=== PATIENT | female | born 1975 | race Caucasian/White ===

== ENCOUNTER 2018-12-15 18:03 | Emergency (ER) | payer OTHER ==
[~2018-12-15 18:03] MED LIST: LANTUS INSULIN
--- NOTE | 2018-12-15 18:12 | NUR ---
PT REFUSED TO TRIAGE AT THIS TIME, STATED WILL GO TO SEE HER PCP INSTEAD.
== END 2018-12-15 18:12 | disposition left against medical advice (07) ==
LOC: MED 18:03
DX: Z53.21 Procedure and treatment not carried out due to patient leaving prior to being seen by health care provider (principal)

== ENCOUNTER 2018-12-25 20:18 | Emergency (ER) | payer OTHER ==
[~2018-12-25] VITALS: Ht 149.9 cm; Wt 65.8 kg
[2018-12-25 20:23] VITALS: BP 165/67
--- NOTE | 2018-12-25 20:32 | NUR ---
PT WHEELCHAIRED TO BED 8.
--- NOTE | 2018-12-25 20:42 | NUR ---
Note undone in EDM - 12/25/18 at 2103 by MEDYANNI 43 Y/O FEMALE 02/02, CONTINUOUS C/O PAIN ON RIGHT LEG AND RADIATING TO RIGHT ANKLE S/P FALL AT A POOL THIS AFTERNOON. NO OTHER INJURIES NOTED. LEFT EYE IS BRISK +2. HARDENED SKIN IS NOTED ON THE RIGHT OUTER LEG. RIGHT ANKLE HAS NON-PITTING EDEMA. LEFT ARM HAS SOME BRUISING. PATIENT AMBULATES WITH ASSISTANCE. SIDE RAILSX2. PLACED ON MONITOR. ER MD AWARE OF STATUS. 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
--- NOTE | 2018-12-25 20:46 | NUR ---
43 Y/O FEMALE 02/02, CONTINUOUS C/O PAIN ON RIGHT LEG AND RADIATING TO RIGHT ANKLE S/P FALL AT A POOL THIS AFTERNOON. NO OTHER INJURIES NOTED. LEFT EYE IS BRISK +2. HARDENED SKIN IS NOTED ON THE RIGHT OUTER LEG. RIGHT ANKLE HAS NON-PITTING EDEMA. LEFT ARM HAS SOME BRUISING. PATIENT AMBULATES WITH ASSISTANCE. SIDE RAILSX2. PLACED ON MONITOR. ER MD AWARE OF STATUS. 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
[2018-12-25] MEDS ORDERED: HYDROcodone/APAP 5/325 MG 1 TAB TAB PO ONE (20:50)
--- NOTE | 2018-12-25 21:15 | NUR ---
X-RAY AT BEDSIDE.
--- NOTE | 2018-12-25 21:59 | NUR ---
PATIENT WHEELCHAIRED TO THE BATHROOM
--- NOTE | 2018-12-25 22:15 | NUR ---
Patient discharged with v/s stable. Written and verbal after care instructions given and explained. Patient verbalized understanding. Ambulatory with steady gait/crutches/ assistance . All questions addressed prior to discharge. Advised to follow up with PMD.
[2018-12-25 22:57] VITALS: BP 125/69
== END 2018-12-25 22:15 | disposition home or self-care (01) ==
LOC: MED 20:18
DX: S80.11XA Contusion of right lower leg, initial encounter (principal); S50.12XA Contusion of left forearm, initial encounter; E11.22 Type 2 diabetes mellitus with diabetic chronic kidney disease; N18.6 End stage renal disease; Z99.2 Dependence on renal dialysis; Z79.4 Long term (current) use of insulin; Z98.890 Other specified postprocedural states; Z88.8 Allergy status to other drugs, medicaments and biological substances; Z91.018 Allergy to other foods; W01.0XXA Fall on same level from slipping, tripping and stumbling without subsequent striking against object, initial encounter; Y93.89 Activity, other specified; Y92.89 Other specified places as the place of occurrence of the external cause; Y99.8 Other external cause status
CPT/HCPCS: 73090; 73552; 99283; Q0092

== ENCOUNTER 2021-01-19 18:04 | Emergency (ER) | payer OTHER ==
[~2021-01-19] VITALS: Ht 149.9 cm; Wt 64.4 kg
[2021-01-19 18:10] VITALS: BP 134/66
--- NOTE | 2021-01-19 18:17 | NUR ---
PATIENT AMBULATED WITH STEADY GAIT TO BED 3.
--- NOTE | 2021-01-19 18:32 | NUR ---
45 Y/O F BIB DAUGHTER FROM HOME, C/O WAS DX WITH PNEUMONIA LAST WEEK AT URGENT CARE, INCREASED CHEST PAIN AND SOB, BACK PAIN. DENIES DYSURIA AND HEMATURIA. C/O ABD PAIN. COUGH NOTED. LUNG SOUNDS CRACKLES. STATES 10/10 BACK PAIN, UNABLE TO DESCRIBE. WITH NAUSEA, DIARRHEA, CONSTIPATION. PMH: DIALYSIS (TUES, THURS, SAT), SARCODOSIS, DM2, STENT IN HEART ALLERGY: VANCOMYCIN, BOBBY, SULFA MED: ARITHROMYCIN
--- NOTE | 2021-01-19 18:34 | NUR ---
DR JAY AT BEDSIDE EXAMINING PT
[2021-01-19] MEDS ORDERED: HYDROcodone/APAP 5/325 MG 1 TAB TAB PO ONE (19:00)
--- NOTE | 2021-01-19 19:06 | NUR ---
PT BEING TAKEN TO XRAY
--- NOTE | 2021-01-19 19:07 | NUR ---
HANDOFF RECEIVED FROM SUSAN GRAYSON. ASSUMED CARE.
--- NOTE | 2021-01-19 19:07 | NUR ---
Pt report given to ANNAMARIA DAVIS. Transfer of care at this time.
--- NOTE | 2021-01-19 19:10 | NUR ---
Note undone in EDM - 01/19/21 at 1945 by JUAN MIGUEL PATIENT REPORTS 10/10 BACK PAIN. REFUSED NORCO REPORTS ALLERGY TO NORCO AND TRAMADOL. PATIENT OK WITH TYLENOL INSTEAD FOR PAIN. ERMD MADE AWARE. PATIENT SITTING IN BED CLOCKED IN LOWEST POSITION W X1 SIDERAIL UP. HOB SLIGHTLY ELEVATED. PATIENT ON HER PHONE. BREATHING EVEN AND UNLABORED. ND NOTED, WILL CONTINUE TO MONITOR.
--- NOTE | 2021-01-19 19:10 | NUR ---
REPORT GIVEN TO ONCOMING RNJARRET. TRANFER OF CARE AT THIS TIME.
--- NOTE | 2021-01-19 19:15 | NUR ---
PT RETURNED FROM X RAY
--- NOTE | 2021-01-19 19:15 | NUR ---
PATIENT REPORTS 10/10 BACK PAIN. REFUSED NORCO REPORTS ALLERGY TO NORCO AND TRAMADOL. PATIENT OK WITH TYLENOL INSTEAD FOR PAIN. ERMD MADE AWARE. PATIENT SITTING IN BED CLOCKED IN LOWEST POSITION W X1 SIDERAIL UP. HOB SLIGHTLY ELEVATED. PATIENT ON HER PHONE. PATIENT REPORTS IMPROVEMENT OF SOB AND CHEST PAIN. LUNG SOUNDS CLEAR THROUGHOUT. S1S2 PRESENT. BREATHING EVEN AND UNLABORED. PATIENT CONNECTED TO MONITOR W VSS. NAD NOTED, WILL CONTINUE TO MONITOR.
[2021-01-19] MEDS ORDERED: ACETAMINOPHEN 325 MG TAB PO ONE (19:20)
[2021-01-19] MEDS ORDERED: CRUSHER, PILL MC ONE (19:29)
--- NOTE | 2021-01-19 19:55 | NUR ---
SWETA CROWELL COLLECTED FROM PATIENT NARES AND HANDED TO PING FROM LAB.
--- NOTE | 2021-01-19 21:05 | NUR ---
PATIENT REQUESTING A STRAIGHT CATH TO COLLECT URINE AND CHECK FOR UTI D/T BACK PAIN. PATIENT REPORTS SHE SOMETIMES MAKES STILL MAKES URINE. STRAIGHT CATH INTERVENTION COMPLETED ON PATIENT. NO URINE OUTPUT AT THIS TIME, UNABLE TO COLLECT ANY URINE.
--- NOTE | 2021-01-19 21:10 | NUR ---
PATIENT AMBULATED TO BATHROOM W STEADY GAIT.
[2021-01-19 21:47] VITALS: BP 133/83
--- NOTE | 2021-01-19 21:47 | NUR ---
Patient discharged with v/s stable. Written and verbal after care instructions given and explained. Patient verbalized understanding. Ambulatory with steady gait. All questions addressed prior to discharge. Advised to follow up with PMD.
== END 2021-01-19 21:47 | disposition home or self-care (01) ==
LOC: MED 18:04
DX: M54.5 Low back pain (principal); Z20.822 Contact with and (suspected) exposure to COVID-19; R05 Cough
CPT/HCPCS: 71046; 93005; 99285; U0003

== ENCOUNTER 2021-09-21 13:36 | Inpatient (IN) | payer OTHER ==
[~2021-09-21] VITALS: Ht 149.9 cm; Wt 57.3 kg
[2021-09-21 13:49] VITALS: BP 169/75
--- NOTE | 2021-09-21 14:04 | NUR ---
PT AMB TO BED 12.
[2021-09-21] MEDS ORDERED: ONDANSETRON 4 MG/2 ML VIAL IVP ONE (14:15)
[2021-09-21] MEDS ORDERED: KETOROLAC 15 MG/ML VIAL IVP ONE (14:15)
--- NOTE | 2021-09-21 14:30 | NUR ---
PT C/O SOB, COUGH CONGESTION X3 DAYS. HX OF DIALYSIS T TH S, COMPLETED DIALYSIS YESTERDAY. NSR ON MONITOR. NAD. SAFETY MAINTAINED
[2021-09-21 15:00] LABS: BASOPHILS # (AUTO) 0.1 K/uL (0.00-0.22); BASOPHILS % (AUTO) 1.2 % (0.0-2.0); EOSINOPHILS # (AUTO) 0.3 K/uL (0-0.4); EOSINOPHILS % (AUTO) 6.6 % (0.0-4.0); HEMATOCRIT 33.1 % (36-48); HEMOGLOBIN 10.7 g/dL (12.0-16.0); LYMPHOCYTES # (AUTO) 0.5 K/uL (2.5-16.5); LYMPHOCYTES % (AUTO) 11.1 % (20.5-51.1); MEAN CORPUSCULAR HEMOGLOBIN 30 pg (27-31); MEAN CORPUSCULAR HGB CONC 32 g/dL (33-37); MEAN CORPUSCULAR VOLUME 92.7 fL (80-94); MONOCYTES # (AUTO) 0.4 K/uL (0.8-1.0); MONOCYTES % (AUTO) 8.5 % (1.7-9.3); NEUTROPHILS # (AUTO) 3.3 K/uL (1.8-7.7); NEUTROPHILS % (AUTO) 72.6 % (42.2-75.2); PLATELET COUNT (AUTO) 139 K/uL (140-450); RED BLOOD CELL COUNT(AUTO) 3.57 MIL/uL (4.20-5.40); RED CELL DISTRIBUTION WIDTH 16.3 % (11.6-13.7); WHITE BLOOD COUNT (AUTO) 4.6 K/uL (4.8-10.8)
[2021-09-21 15:31] LABS: ALBUMIN 3.9 g/dL (3.4-5.0); ANION GAP 13.2 (8-16); CARBON DIOXIDE 32.5 mmol/L (21-32); POTASSIUM 4.7 mmol/L (3.5-5.1); TOTAL BILIRUBIN 0.7 mg/dL (0.0-1.0)
[2021-09-21 15:34] LABS: CREATININE 6.2 mg/dL (0.6-1.3)
--- NOTE | 2021-09-21 16:30 | NUR ---
REFUSED IV AT THIS TIME. AWARE
[2021-09-21] MEDS ORDERED: DOXYCYCLINE 100 MG CAP PO ONE (17:30)
--- NOTE | 2021-09-21 17:31 | NUR ---
PT PLACED ON 2L NC D/T 88% ON RA. NOW SATURATION 99% ON 2LNC
[2021-09-21] MEDS ORDERED: cefTRIAXone 1,000 MG VIAL ONE (17:56)
[2021-09-21] MEDS ORDERED: CALC667C12 PO (18:12)
[2021-09-21] MEDS ORDERED: ASPI-1822 PO (18:12)
[2021-09-21] MEDS ORDERED: NIFE30TE5 PO (18:12)
[2021-09-21] MEDS ORDERED: ATOR20TA PO (18:12)
[2021-09-21] MEDS ORDERED: ONDANSETRON 4 MG/2 ML VIAL IVP PRN (19:05)
[2021-09-21] MEDS ORDERED: DEXTROSE 50% 50 ML SYR IVP PRN (19:05)
[2021-09-21] MEDS ORDERED: ALBUTEROL 0.083% 2.5 MG/3 ML NEBU INH PRN (19:05)
--- NOTE | 2021-09-21 19:36 | NUR ---
PATIENT REPORTS FEELING SX OF HYPOGLYCEMIA- FEELING SHAKEY, LIGHTHEADEDNESS, WEAK. GIVEN APPLE JUICE AND CRACKERS AFTER THE BG READING OF 53
[2021-09-21] MEDS ORDERED: ALBUTEROL HFA MDI 90 MCG/ACTUATION 8 GM INH PRN (19:55)
--- NOTE | 2021-09-21 20:14 | NUR ---
placed patient NC at 4L. pt c/o sob and feeling weak after receiving apple juice and crackers. denies eating any food throughout the day. ERMD made aware
[2021-09-21] MEDS ORDERED: AZITHROMYCIN 500 MG INJ VIAL IV ONE (20:31)
[2021-09-21] MEDS: AZITHROMYCIN 250 MG in DEXTROSE 5% 250 ML IV SCH (20:39)
[2021-09-21] MEDS: NIFEdipine 30 MG TABER PO SCH (21:08)
[2021-09-21] MEDS: BLOOD GLUCOSE MONITORING 1 DEV DEV FS SCH (21:10)
--- NOTE | 2021-09-22 01:44 | NUR ---
Patient appears to be resting comfortably in bed. Vital Signs within normal limits. Respirations even and unlabored.
--- NOTE | 2021-09-22 07:21 | NUR ---
PATIENT HAS BEEN SCREENED AND CATEGORIZED MODERATE NUTRITION RISK. PATIENT WILL BE SEEN WITHIN 3-5 DAYS OF ADMISSION. 09/24/21-09/26/21 JAMES HDEZ MS, RDN
--- NOTE | 2021-09-22 07:32 | NUR ---
TRANSFER OF CARE REPORT GIVEN TO SUSAN ALEMAN
[2021-09-22] MEDS: BLOOD GLUCOSE MONITORING 1 DEV DEV FS SCH ×4 (08:34→20:53)
[2021-09-22 08:41] LABS: BASOPHILS # (AUTO) 0.1 K/uL (0.00-0.22); EOSINOPHILS # (AUTO) 0.3 K/uL (0-0.4); EOSINOPHILS % (AUTO) 3.9 % (0.0-4.0); HEMATOCRIT 32.8 % (36-48); HEMOGLOBIN 10.6 g/dL (12.0-16.0); LYMPHOCYTES # (AUTO) 0.9 K/uL (2.5-16.5); LYMPHOCYTES % (AUTO) 13.9 % (20.5-51.1); MEAN CORPUSCULAR HEMOGLOBIN 30 pg (27-31); MEAN CORPUSCULAR HGB CONC 33 g/dL (33-37); MEAN CORPUSCULAR VOLUME 93.4 fL (80-94); MONOCYTES # (AUTO) 0.7 K/uL (0.8-1.0); MONOCYTES % (AUTO) 11.3 % (1.7-9.3); NEUTROPHILS # (AUTO) 4.5 K/uL (1.8-7.7); NEUTROPHILS % (AUTO) 69.9 % (42.2-75.2); PLATELET COUNT (AUTO) 121 K/uL (140-450); RED BLOOD CELL COUNT(AUTO) 3.51 MIL/uL (4.20-5.40); RED CELL DISTRIBUTION WIDTH 16.3 % (11.6-13.7); WHITE BLOOD COUNT (AUTO) 6.4 K/uL (4.8-10.8)
[2021-09-22 08:45] LABS: ALBUMIN 3.4 g/dL (3.4-5.0); ANION GAP 16.9 (8-16); MAGNESIUM 3.1 mg/dL (1.8-2.4); POTASSIUM 5.9 mmol/L (3.5-5.1); TOTAL BILIRUBIN 0.5 mg/dL (0.0-1.0)
[2021-09-22 08:56] LABS: CREATININE 7.6 mg/dL (0.6-1.3)
[2021-09-22] MEDS: CALCIUM ACETATE 667 MG TAB PO SCH ×3 (08:56→17:00)
--- NOTE | 2021-09-22 08:59 | NUR ---
PT PROVIDED WITH BREAKFAST TRAY BEDSIDE
[2021-09-22] MEDS: ATORVASTATIN 20 MG TAB PO SCH (09:01)
[2021-09-22] MEDS: ASPIRIN 81 MG TAB.CHEW PO SCH (09:01)
[2021-09-22] MEDS: NIFEdipine 30 MG TABER PO SCH ×2 (09:01→20:54)
--- NOTE | 2021-09-22 11:31 | NUR ---
Patient will be admitted to care of DR. DSOUZA. Admited to TELE. Will go to [id number]. Belongings list completed. Report to SUSAN FRIED.
--- NOTE | 2021-09-22 13:07 | NUR ---
RECEIVE ENDORSE FROM ER NURSE THAT PATIENT MISSING THREE CONSECUTIVE DIALYSIS APPOINTMENT AND STARTING HAVING SOB EVEN ON 3 LITER OXYGEN VIA NC. PATIENT AMBULATORY, ALERT X4, PIV SALINE LOCK AT R. HAND 22G PATENT. DIALYSIS NURSE IS HERE SHORTLY AFTER PATIENT ADMIT. WILL CONTINUE TO MONITOR.
[2021-09-22 14:55] VITALS: BP 147/82
[2021-09-22] MEDS: ACETAMINOPHEN 325 MG TAB PO PRN (15:08)
[2021-09-22 16:00] VITALS: BP 122/77
--- NOTE | 2021-09-22 19:23 | NUR ---
ENDORSE PT TO PM SHIFT NURSE THAT PATIENT STABLE W/ 3 LITER OXYGEN VIA NC, PIV SALINE LOCK AT R. HAND 22G PATENT, TODAY'S DIALYSIS REMOVE 1.5 LITERS
--- NOTE | 2021-09-22 19:28 | NUR ---
RECEIVED PATIENT FROM AM NURSE FOR CONTINUITY OF CARE.PT IS STABLE
[2021-09-22 20:00] VITALS: BP 153/61
--- NOTE | 2021-09-22 21:30 | NUR ---
ALL MEDICATIONS GIVEN,NO ADVERSE REACTIONS NOTED
[2021-09-22] MEDS ORDERED: AZITHROMYCIN 500 MG INJ VIAL IV ONE (22:23)
[2021-09-22] MEDS: AZITHROMYCIN 250 MG in DEXTROSE 5% 250 ML IV SCH (22:55)
[2021-09-23] VITALS: BP 140/68
--- NOTE | 2021-09-23 01:00 | NUR ---
PT ASLEEP,RESPIRATION EVEN AND UNLABORED,NO DISTRESS NOTED
--- NOTE | 2021-09-23 03:00 | NUR ---
SLEEPING COMFORTABLY IN BED,NO COUGHING NOTED,BREATHING EVEN AND UNLABORED
[2021-09-23] MEDS ORDERED: ALBUTEROL HFA MDI 90 MCG/ACTUATION 8 GM INH PRN (03:25)
[2021-09-23 04:00] VITALS: BP 121/67
[2021-09-23] MEDS: ACETAMINOPHEN 325 MG TAB PO PRN (04:39)
--- NOTE | 2021-09-23 06:12 | NUR ---
PATIENT ASLEEP,BREATHING EVEN AND UNLABORED,NO DISTRESS NOTED
[2021-09-23] MEDS: BLOOD GLUCOSE MONITORING 1 DEV DEV FS SCH ×4 (06:38→21:30)
--- NOTE | 2021-09-23 07:30 | NUR ---
RECEIVED REPORT FROM ADVICE CLERK NURSE FOR CONTINUITY OF CARE. PT AWAKE, AOX4, ABLE TO MAKE NEEDS KNOWN. NO DISTRESS ON ROOM AIR, WITH PRODUCTIVE COUGH. SR ON TELE MONITOR. SKIN IS INTACT, WARM AND DRY TO TOUCH. WITH IV RH 22G ON SL. CALL LIGHT WITHIN REACH. SAFETY MEASURES ON PLACE. WILL CONTINUE TO MONITOR.
[2021-09-23 08:00] VITALS: BP 138/72
--- NOTE | 2021-09-23 08:40 | NUR ---
DR CHATTERJEE AT BEDSIDE, SEEN AND EXAMINED PT. ORDERED HD FOR TODAY
[2021-09-23] MEDS: ASPIRIN 81 MG TAB.CHEW PO SCH (08:42)
[2021-09-23] MEDS: CALCIUM ACETATE 667 MG TAB PO SCH ×3 (08:42→16:47)
[2021-09-23] MEDS: ATORVASTATIN 20 MG TAB PO SCH (08:42)
[2021-09-23] MEDS: NIFEdipine 30 MG TABER PO SCH ×2 (08:42→21:28)
[2021-09-23 08:55] LABS: BASOPHILS # (AUTO) 0.1 K/uL (0.00-0.22); HEMOGLOBIN 10.7 g/dL (12.0-16.0); MEAN CORPUSCULAR HEMOGLOBIN 30 pg (27-31); MONOCYTES # (AUTO) 0.7 K/uL (0.8-1.0); RED BLOOD CELL COUNT(AUTO) 3.58 MIL/uL (4.20-5.40); WHITE BLOOD COUNT (AUTO) 4.7 K/uL (4.8-10.8)
--- NOTE | 2021-09-23 08:55 | NUR ---
DUE MEDS GIVEN, TOLERATED WELL
[2021-09-23 09:02] LABS: BASOPHILS % (AUTO) 1.3 % (0.0-2.0); EOSINOPHILS # (AUTO) 0.3 K/uL (0-0.4); EOSINOPHILS % (AUTO) 6.7 % (0.0-4.0); HEMATOCRIT 33.7 % (36-48); LYMPHOCYTES # (AUTO) 0.9 K/uL (2.5-16.5); LYMPHOCYTES % (AUTO) 20.1 % (20.5-51.1); MEAN CORPUSCULAR HGB CONC 32 g/dL (33-37); MEAN CORPUSCULAR VOLUME 94.1 fL (80-94); MONOCYTES % (AUTO) 15.5 % (1.7-9.3); NEUTROPHILS # (AUTO) 2.6 K/uL (1.8-7.7); NEUTROPHILS % (AUTO) 56.4 % (42.2-75.2); PLATELET COUNT (AUTO) 113 K/uL (140-450); RED CELL DISTRIBUTION WIDTH 16.2 % (11.6-13.7)
[2021-09-23 09:27] LABS: CARBON DIOXIDE 25.2 mmol/L (21-32); POTASSIUM 4.2 mmol/L (3.5-5.1)
[2021-09-23 09:29] LABS: CREATININE 6.5 mg/dL (0.6-1.3)
[2021-09-23 12:00] VITALS: BP 127/71
[2021-09-23] MEDS: INSULIN LISPRO SLIDING SCALE 100 UNITS/ML VIAL SUBQ PRN ×2 (12:27→16:47)
--- NOTE | 2021-09-23 15:00 | NUR ---
HEMODIALYSIS DONE, NO ADVERSE REACTIONS NOTED, VS WNL
[2021-09-23] MEDS ORDERED: FAMOTIDINE 20 MG TAB PO SCH (15:30)
[2021-09-23 16:00] VITALS: BP 131/60
[2021-09-23] MEDS ORDERED: HYDRAGUARD CREAM TP SCH (16:00)
--- NOTE | 2021-09-23 16:00 | NUR ---
WITH C/O HEARTBURN, NOTIFIED DR MARTIN, ORDERED FAMOTIDINE 20MG QOD FIRST DOSE NOW
--- NOTE | 2021-09-23 17:30 | NUR ---
PT RESTING IN BED, NO RESPIRATORY DISTRESS, NO C/O PAIN
--- NOTE | 2021-09-23 19:30 | NUR ---
RECEIVED PT FROM AM NURSE FOR CONTINUITY OF CARE. PT IS STABLE
[2021-09-23 20:00] VITALS: BP 129/64
[2021-09-23] MEDS ORDERED: AZITHROMYCIN 500 MG INJ VIAL IV ONE (21:00)
[2021-09-23] MEDS: AZITHROMYCIN 250 MG in DEXTROSE 5% 250 ML IV SCH (21:27)
--- NOTE | 2021-09-23 21:30 | NUR ---
ALL SCHEDULED MEDS GIVEN,NO ADVERSE REACTIONS NOTED
[2021-09-24] VITALS: BP 123/61
--- NOTE | 2021-09-24 01:00 | NUR ---
PATIENT ASLEEP,NO S/SX OF DISTRESS NOTED
--- NOTE | 2021-09-24 03:00 | NUR ---
AWAKE AND ALERT,NO COUGH OR CONGESTION NOTED
[2021-09-24 04:00] VITALS: BP 125/66
--- NOTE | 2021-09-24 06:18 | NUR ---
PATIENT ASLEEP,NO DISTRESS NOTED
[2021-09-24] MEDS: INSULIN LISPRO SLIDING SCALE 100 UNITS/ML VIAL SUBQ PRN ×2 (06:34→12:34)
[2021-09-24] MEDS: BLOOD GLUCOSE MONITORING 1 DEV DEV FS SCH ×2 (06:36→12:21)
--- NOTE | 2021-09-24 07:20 | NUR ---
RECEIVED REPORT FROM FARM MACHINERY ERECTOR NURSE. PT IS SLEEPING, SEEN CHEST RISE AND FALL. IV SITE ON RIGHT HAND 22G, SALINE LOCKED. ON ROOM AIR. CALL THOMSON WITHIN PT'S REACH. ALL SAFETY MEASURES DONE. DISCUSSED PLAN OF CARE. WILL CONTINUE TO MONITOR.
--- NOTE | 2021-09-24 07:41 | NUR ---
ALEXI- CALLED. WANTED TO SAY TO PT TO CALL HIM WHEN SHE WAKES UP.
[2021-09-24 08:00] VITALS: BP 138/69
[2021-09-24] MEDS ORDERED: LEVO-315 PO (08:31)
[2021-09-24] MEDS: CALCIUM ACETATE 667 MG TAB PO SCH ×2 (08:55→12:18)
[2021-09-24] MEDS: NIFEdipine 30 MG TABER PO SCH (08:56)
[2021-09-24] MEDS: ASPIRIN 81 MG TAB.CHEW PO SCH (08:56)
[2021-09-24] MEDS: ATORVASTATIN 20 MG TAB PO SCH (08:56)
[2021-09-24 08:57] LABS: BASOPHILS # (AUTO) 0.1 K/uL (0.00-0.22); BASOPHILS % (AUTO) 1.1 % (0.0-2.0); EOSINOPHILS # (AUTO) 0.4 K/uL (0-0.4); EOSINOPHILS % (AUTO) 9.2 % (0.0-4.0); HEMATOCRIT 32.8 % (36-48); HEMOGLOBIN 10.5 g/dL (12.0-16.0); LYMPHOCYTES # (AUTO) 1.1 K/uL (2.5-16.5); LYMPHOCYTES % (AUTO) 23.5 % (20.5-51.1); MEAN CORPUSCULAR HEMOGLOBIN 30 pg (27-31); MEAN CORPUSCULAR HGB CONC 32 g/dL (33-37); MEAN CORPUSCULAR VOLUME 93.4 fL (80-94); MONOCYTES # (AUTO) 0.7 K/uL (0.8-1.0); MONOCYTES % (AUTO) 15.2 % (1.7-9.3); NEUTROPHILS # (AUTO) 2.3 K/uL (1.8-7.7); PLATELET COUNT (AUTO) 96 K/uL (140-450); RED BLOOD CELL COUNT(AUTO) 3.51 MIL/uL (4.20-5.40); RED CELL DISTRIBUTION WIDTH 15.8 % (11.6-13.7); WHITE BLOOD COUNT (AUTO) 4.6 K/uL (4.8-10.8)
[2021-09-24 09:12] LABS: ALBUMIN 3.2 g/dL (3.4-5.0); ANION GAP 16.3 (8-16); CARBON DIOXIDE 21.3 mmol/L (21-32); POTASSIUM 4.6 mmol/L (3.5-5.1)
--- NOTE | 2021-09-24 10:58 | NUR ---
VIC FROM [facility] CALLED, PT BUN IS 38; CREATININE 5.3
[2021-09-24 10:59] LABS: CREATININE 5.3 mg/dL (0.6-1.3)
--- NOTE | 2021-09-24 11:00 | NUR ---
SEEN PT LYING ON HER BED AWAKE. PT NOT IN DISTRESS AT THIS TIME. WILL CONTINUE TO MONITOR.
[2021-09-24 11:31] VITALS: BP 138/69
[2021-09-24 11:33] LABS: TOTAL BILIRUBIN 0.5 mg/dL (0.0-1.0)
--- NOTE | 2021-09-24 13:37 | NUR ---
DISCHARGED PT TO HOME. PICKED UP BY . STUDENT NURSE WHEELED PT OUT THE LOBBY. REMOVED ARM BAND. IV SITE REMOVED AND BLEEDING CONTROLLED. CHANGED TO OWN CLOTHES. ALL PERSONAL BELONGINGS WERE IN POSSESSION. PT V/S STABLE. DISCHARGE TEACHING DONE.
--- NOTE | 2021-09-24 16:27 | NUR ---
DC PLANNING SW ATTEMPTED TO MEET WITH PATIENT AT BEDSIDE HOWEVER, PATIENT WAS TIRED AND REQUESTED THAT SW CALL MS. SOUZA (DAUGHTER) SW OUTREACHED TO MS. SOUZA TO GATHER COLLATERAL INFORMATION. REPORTS THAT SHE IS PATIENTS EMERGENCY CONTACT AND M.D.M. MS. SOUZA DENIES KNOWLEDGE OF A.D IN PLACE, MS. SOUZA DECLINED A.D OFFERED BY ASHLEY. MS. SOUZA REPORTS THAT HER AND PATIENT LIVE IN A GROUND FLOOR APT AT THE ADDRESS ON FILE.MS. SOUZA REPORTS THAT PATIENT IS INDEPENDENT AND DENIES DME USE. MS. SOUZA REPORTS THAT PATIENT MEETS WITH PCP "PRETTY CONSISTENTLY" AND REPORTS LAST VISIT "END OF LAST MONTH" PATIENT RECEIVES DIALYSIS TX AT [facility] [phone] ON AT 4 AM WITH MS. SOUZA PROVIDING TRANSPORTATION TO DIALYSIS APPTS. MS. SOUZA REPORTS THAT PATIENT RECEIVED HH A FEW MONTHS AGO HOWEVER, WAS UNABLE TO RECALL HH AGENCY OR REASON FOR HH. MS. 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 MS. SOUZA REPORTS THAT PATIENT IS MEDICATION COMPLIANT AND DENIES BARRIERS IN ACCESSING MEDICATION. PATIENT RECEIVES MEDICATION FROM [employer] [place], WHEN NEEDED. DC PLAN IS FOR PATIENT TO RETURN HOME WHEN CLEARED WITH PROVIDING TRANSPORTATION. SW INQUIRED ON RESOURCES NEEDED, MS. SOUZA DECLINED AT THIS TIME.
== END 2021-09-24 13:37 | disposition home or self-care (01) | DRG 139 ==
LOC: MED 13:36 → MTU 19:09 → MMU 09-22 11:03
PROVIDERS: ADMIT Hospitalist; ATTEND Hospitalist
PROC: 5A1D70Z Performance of Urinary Filtration, Intermittent, Less than 6 Hours Per Day (ICD-10-PCS; principal; 2021-09-22)
PROC: 5A1D70Z Performance of Urinary Filtration, Intermittent, Less than 6 Hours Per Day (ICD-10-PCS; 2021-09-23)
DX: J18.9 Pneumonia, unspecified organism (principal); B00.52 Herpesviral keratitis; I12.0 Hypertensive chronic kidney disease with stage 5 chronic kidney disease or end stage renal disease; E11.22 Type 2 diabetes mellitus with diabetic chronic kidney disease; N18.6 End stage renal disease; E87.70 Fluid overload, unspecified; I10 Essential (primary) hypertension; Z20.822 Contact with and (suspected) exposure to COVID-19; I25.10 Atherosclerotic heart disease of native coronary artery without angina pectoris; Z88.1 Allergy status to other antibiotic agents; Z88.2 Allergy status to sulfonamides; Z88.8 Allergy status to other drugs, medicaments and biological substances; Z91.018 Allergy to other foods; Z79.899 Other long term (current) drug therapy
CPT/HCPCS: 36415; 71045; 80048; 80053; 82948; 83735; 83880; 84484; 85025; 87081; 93005; 94640; 96365; 99291; J0456; J0696; J1644; J1815; J1885; J2405; J7060; J7613; Q0092

== ENCOUNTER 2022-05-12 16:40 | Emergency (ER) | payer OTHER ==
[~2022-05-12] VITALS: Ht 154.9 cm; Wt 56.2 kg
[~2022-05-12 16:40] MED LIST changes: +ASPI-1822 PO; +ATOR20TA PO; +CALC667C12 PO; +LEVO-481 PO; +NIFE30TE5 PO
[2022-05-12 16:51] VITALS: BP 141/73
--- NOTE | 2022-05-12 17:02 | NUR ---
ATTEMPTED TO PUT PT IN GOWN, PT REFUSED.
--- NOTE | 2022-05-12 17:08 | NUR ---
Dr. Menjivar evaluating patient at bedside.
--- NOTE | 2022-05-12 17:14 | NUR ---
46/F C/O LEFT LEG PAIN, STATES SHE HAD A CABG PERFORMED AT [facility] [place] [facility] [place]; REFERED FROM PCP FOR ULTRASOUND. PATIENT A&OX4, STATES AN INCISION WAS MADE ON LEFT LOWER LEG AND HAS SINCE HAD INCREASING PAIN AND SWELLING TO SITE FOR 1 DAY. LLE PAIN, SWELLING, DISCOLORATION NOTED TO INCISION BELOW LEFT KNEE. PATIENT REPORTS 10/10, PRESSURE/THROBBING/CONSTANT, NON-RADIATING PAIN. LLE TENDERNESS NOTED. DENIES SOB, CHEST PAIN, NUMBNESS, TINGLING, N/V/D, HEADACHE, VISION CHANGES. ADVOCACY DIRECTOR IN PLACE. PT ON 2L N/C SPO2 100% ON 2L. BED LOCKED IN LOWEST POSITION, SIDE RAILS X 1. PMH: ESRD (DIALYSIS TUES, TH, SAT), DM, HTN, HF ALLERGIES: HYDROCODONE, TRAMADOL, VANCOMYCIN, SULFA
[2022-05-12] MEDS ORDERED: KETOROLAC 15 MG/ML VIAL IVP ONE (17:40)
[2022-05-12 17:57] LABS: BASOPHILS # (AUTO) 0.1 K/uL (0.00-0.22); BASOPHILS % (AUTO) 0.9 % (0.0-2.0); EOSINOPHILS # (AUTO) 1.4 K/uL (0-0.4); EOSINOPHILS % (AUTO) 17.5 % (0.0-4.0); HEMATOCRIT 25.8 % (36-48); HEMOGLOBIN 8.6 g/dL (12.0-16.0); LYMPHOCYTES # (AUTO) 0.9 K/uL (2.5-16.5); LYMPHOCYTES % (AUTO) 11.4 % (20.5-51.1); MEAN CORPUSCULAR HEMOGLOBIN 29 pg (27-31); MEAN CORPUSCULAR HGB CONC 33 g/dL (33-37); MEAN CORPUSCULAR VOLUME 86.1 fL (80-94); MONOCYTES # (AUTO) 0.7 K/uL (0.8-1.0); MONOCYTES % (AUTO) 8.3 % (1.7-9.3); NEUTROPHILS # (AUTO) 5.1 K/uL (1.8-7.7); NEUTROPHILS % (AUTO) 61.9 % (42.2-75.2); PLATELET COUNT (AUTO) 150 K/uL (140-450); RED CELL DISTRIBUTION WIDTH 16.8 % (11.6-13.7); WHITE BLOOD COUNT (AUTO) 8.2 K/uL (4.8-10.8)
[2022-05-12 18:12] LABS: ANION GAP 14.7 (8-16); CARBON DIOXIDE 26.4 mmol/L (21-32); POTASSIUM 5.1 mmol/L (3.5-5.1)
[2022-05-12 19:01] LABS: CREATININE 5.4 mg/dL (0.6-1.3)
[2022-05-12] MEDS ORDERED: ACETAMINOPHEN 325 MG TAB PO ONE (19:15)
[2022-05-12] MEDS ORDERED: CEPH-588 PO (19:25)
--- NOTE | 2022-05-12 19:25 | NUR ---
Report and transfer of care endorsed to SUSAN Gary.
[2022-05-12 19:38] VITALS: BP 128/62
--- NOTE | 2022-05-12 19:38 | NUR ---
Patient discharged with v/s stable. Written and verbal after care instructions given and explained. Patient alert, oriented and verbalized understanding of instructions. Wheel Chair Assisted with to car. All questions addressed prior to discharge. ID band removed. Patient advised to follow up with PMD. Rx of KEFLEX given. Patient educated on indication of medication including possible reaction and side effects. Opportunity to ask questions provided and answered.
== END 2022-05-12 19:38 | disposition home or self-care (01) ==
LOC: MED 16:40
DX: L03.116 Cellulitis of left lower limb (principal); E11.9 Type 2 diabetes mellitus without complications; I10 Essential (primary) hypertension; E78.5 Hyperlipidemia, unspecified; Z95.1 Presence of aortocoronary bypass graft; Z98.890 Other specified postprocedural states; Z87.448 Personal history of other diseases of urinary system; Z79.899 Other long term (current) drug therapy; Z79.82 Long term (current) use of aspirin; Z79.2 Long term (current) use of antibiotics; Z88.5 Allergy status to narcotic agent; Z91.018 Allergy to other foods; Z88.1 Allergy status to other antibiotic agents; Z88.2 Allergy status to sulfonamides
CPT/HCPCS: 36415; 80048; 85025; 93971; 99284; Q0092

== ENCOUNTER 2022-07-07 11:19 | Emergency (ER) | payer OTHER ==
[~2022-07-07] VITALS: Ht 149.9 cm; Wt 56.2 kg
[~2022-07-07 11:19] MED LIST changes: +CEPH-588 PO
[2022-07-07 11:26] VITALS: BP 150/64
--- NOTE | 2022-07-07 11:34 | NUR ---
Patient was wheelchair assisted to bed 7.
--- NOTE | 2022-07-07 11:53 | NUR ---
46 y/o female bib daughter for c/o pain from left knee radiating to left foot s/p fall x yesterday. Per patient, she was ambulating and stepped on a toy and fell. Patient is noted with swelling to left knee down to toes. Patient has bilateral pedal pulses. Patient ttok Ibuprofen with relief. Medical History: ESRD, Dialysis, DM, Sarcoidosis, Open Heart Surgery (5 weeks ago) ALLERGY: HYDROCODONE, BOBBY, TRAMADOL, VANCOMYCIN, SULFA
--- NOTE | 2022-07-07 12:01 | NUR ---
PA Casas evaluating patient at bedside.
--- NOTE | 2022-07-07 12:47 | NUR ---
X-Ray at bedside.
--- NOTE | 2022-07-07 13:10 | NUR ---
Patient returned from X-Ray.
[2022-07-07] MEDS ORDERED: ACET-8905 PO (13:50)
--- NOTE | 2022-07-07 15:00 | NUR ---
PT LEFT W/O DC PAPERS, GIDDINGS [phone] SENT TO [facility] [place]
== END 2022-07-07 15:00 | disposition home or self-care (01) ==
LOC: MED 11:19
DX: S82.832A Other fracture of upper and lower end of left fibula, initial encounter for closed fracture (principal); E11.9 Type 2 diabetes mellitus without complications; I10 Essential (primary) hypertension; Z87.448 Personal history of other diseases of urinary system; Z95.1 Presence of aortocoronary bypass graft; Z79.891 Long term (current) use of opiate analgesic; Z79.2 Long term (current) use of antibiotics; Z79.82 Long term (current) use of aspirin; Z79.899 Other long term (current) drug therapy; Z88.5 Allergy status to narcotic agent; Z91.018 Allergy to other foods; Z88.1 Allergy status to other antibiotic agents; Z88.2 Allergy status to sulfonamides; W01.0XXA Fall on same level from slipping, tripping and stumbling without subsequent striking against object, initial encounter; Y92.89 Other specified places as the place of occurrence of the external cause; Y93.89 Activity, other specified; Y99.8 Other external cause status
CPT/HCPCS: 29505; 72170; 73562; 73590; 73630; 99284

== ENCOUNTER 2022-07-26 13:40 | Emergency (ER) | payer OTHER ==
[~2022-07-26] VITALS: Ht 149.9 cm; Wt 58.1 kg
[~2022-07-26 13:40] MED LIST changes: +ACET-8905 PO
--- NOTE | 2022-07-26 13:53 | NUR ---
PT AMBULATED TO BED 04
[2022-07-26 13:59] VITALS: BP 200/94
--- NOTE | 2022-07-26 14:13 | NUR ---
receoived in bed 4 bibs for left eye blurry vision. blind right eye. hx esrd last hd yesterday. denies trauma to eye. denies headache,n,v, dizziness. aaox4. resp even and nonlabored. vss. ambulatory
[2022-07-26] MEDS ORDERED: TETRACAINE HCL/PF 0.5% OPTH 4 ML BTL OP ONE (14:15)
[2022-07-26] MEDS ORDERED: FLUORESCEIN OPTH STRIP 1 MG OP ONE (14:15)
[2022-07-26 16:05] VITALS: BP 132/76
== END 2022-07-26 16:05 | disposition home or self-care (01) ==
LOC: MED 13:40
DX: H16.002 Unspecified corneal ulcer, left eye (principal); I10 Essential (primary) hypertension; I25.10 Atherosclerotic heart disease of native coronary artery without angina pectoris; E11.9 Type 2 diabetes mellitus without complications; N18.6 End stage renal disease; Z99.2 Dependence on renal dialysis; Z88.8 Allergy status to other drugs, medicaments and biological substances; Z91.018 Allergy to other foods; Z79.4 Long term (current) use of insulin; Z79.899 Other long term (current) drug therapy
CPT/HCPCS: 99283

== ENCOUNTER 2022-08-27 07:35 | Emergency (ER) | payer OTHER ==
[~2022-08-27] VITALS: Ht 157.5 cm; Wt 63.5 kg
--- NOTE | 2022-08-27 07:40 | NUR ---
BIBA BLS TO ER BED 9
[2022-08-27 07:54] VITALS: BP 181/69
--- NOTE | 2022-08-27 08:24 | NUR ---
multiple chronic complaints, no acute issues. says she told the dialysis staff she has pain all over from her neuropathy
[2022-08-27 08:30] LABS: BASOPHILS # (AUTO) 0.1 K/uL (0.00-0.22); BASOPHILS % (AUTO) 1.1 % (0.0-2.0); EOSINOPHILS # (AUTO) 1.2 K/uL (0-0.4); EOSINOPHILS % (AUTO) 15.5 % (0.0-4.0); HEMATOCRIT 33.5 % (36-48); HEMOGLOBIN 10.6 g/dL (12.0-16.0); LYMPHOCYTES % (AUTO) 12.9 % (20.5-51.1); MEAN CORPUSCULAR HEMOGLOBIN 25 pg (27-31); MEAN CORPUSCULAR HGB CONC 32 g/dL (33-37); MEAN CORPUSCULAR VOLUME 80.4 fL (80-94); MONOCYTES # (AUTO) 0.4 K/uL (0.8-1.0); MONOCYTES % (AUTO) 5.3 % (1.7-9.3); NEUTROPHILS % (AUTO) 65.2 % (42.2-75.2); PLATELET COUNT (AUTO) 146 K/uL (140-450); RED BLOOD CELL COUNT(AUTO) 4.17 MIL/uL (4.20-5.40); WHITE BLOOD COUNT (AUTO) 7.7 K/uL (4.8-10.8)
[2022-08-27 09:42] LABS: LIPASE 102 U/L (73-393)
[2022-08-27 10:21] LABS: ALBUMIN 3.1 g/dL (3.4-5.0); ANION GAP 19.4 (8-16); CARBON DIOXIDE 23.8 mmol/L (21-32); POTASSIUM 5.2 mmol/L (3.5-5.1); TOTAL BILIRUBIN 0.6 mg/dL (0.0-1.0)
[2022-08-27 10:26] LABS: CREATININE 6.4 mg/dL (0.6-1.3)
--- NOTE | 2022-08-27 10:52 | NUR ---
CALLED [facility], SPOKE WITH THE NURSE CARING FOR JONY. STATED THERE IS AN OPENING AT 1PM TODAY. DR VERDUGO AND PATIENT AWARE.
[2022-08-27 11:18] VITALS: BP 187/82
--- NOTE | 2022-08-27 11:22 | NUR ---
Patient discharged with v/s stable. Written and verbal after care instructions ABOUT PARESTHESIA, DIALYSIS AND WEAKNESS given and explained. Patient verbalized understanding. Ambulatory with steady gait. All questions addressed prior to discharge. Advised to follow up with PMD. DR VERDUGO AWARE OF VITALS, OKAY TO D/C
== END 2022-08-27 11:22 | disposition home or self-care (01) ==
LOC: MED 07:35
DX: R53.1 Weakness (principal); R20.2 Paresthesia of skin; E87.5 Hyperkalemia; Z20.822 Contact with and (suspected) exposure to COVID-19; E11.22 Type 2 diabetes mellitus with diabetic chronic kidney disease; I12.0 Hypertensive chronic kidney disease with stage 5 chronic kidney disease or end stage renal disease; N18.6 End stage renal disease; I25.10 Atherosclerotic heart disease of native coronary artery without angina pectoris; Z99.2 Dependence on renal dialysis; E78.5 Hyperlipidemia, unspecified; Z95.1 Presence of aortocoronary bypass graft; Z79.899 Other long term (current) drug therapy; Z79.82 Long term (current) use of aspirin; Z79.4 Long term (current) use of insulin; Z79.2 Long term (current) use of antibiotics; Z88.5 Allergy status to narcotic agent; Z88.1 Allergy status to other antibiotic agents; Z88.2 Allergy status to sulfonamides; Z91.018 Allergy to other foods
CPT/HCPCS: 36415; 70450; 71045; 80053; 82550; 83690; 83880; 84484; 85025; 93005; 99285

== ENCOUNTER 2023-08-31 12:37 | Emergency (ER) | payer OTHER ==
[~2023-08-31] VITALS: Ht 149.9 cm; Wt 56.2 kg
[2023-08-31 12:45] VITALS: BP 136/83; PULSE 80; RESP 18; TEMP 97.8; O2SAT 96
[2023-08-31 15:53] LABS: EOSINOPHILS # (AUTO) 0.8 K/uL (0-0.4); EOSINOPHILS % (AUTO) 18.8 % (0.0-4.0); HEMATOCRIT 30.5 % (36-48); HEMOGLOBIN 10.3 g/dL (12.0-16.0); LYMPHOCYTES # (AUTO) 0.8 K/uL (2.5-16.5); LYMPHOCYTES % (AUTO) 18.2 % (20.5-51.1); MEAN CORPUSCULAR HEMOGLOBIN 31 pg (27-31); MEAN CORPUSCULAR HGB CONC 34 g/dL (33-37); MONOCYTES # (AUTO) 0.3 K/uL (0.8-1.0); MONOCYTES % (AUTO) 7.7 % (1.7-9.3); NEUTROPHILS # (AUTO) 2.4 K/uL (1.8-7.7); NEUTROPHILS % (AUTO) 54.3 % (42.2-75.2); PLATELET COUNT (AUTO) 134 K/uL (140-450); RED BLOOD CELL COUNT(AUTO) 3.28 MIL/uL (4.20-5.40); RED CELL DISTRIBUTION WIDTH 15.8 % (11.6-13.7); WHITE BLOOD COUNT (AUTO) 4.4 K/uL (4.8-10.8)
[2023-08-31 16:03] LABS: ANION GAP 10.4 (8-16); CALCIUM 8.8 mg/dL (8.5-10.1); CARBON DIOXIDE 34.1 mmol/L (21-32); POTASSIUM 3.5 mmol/L (3.5-5.1)
[2023-08-31 16:05] LABS: CREATININE 4.2 mg/dL (0.6-1.3)
[2023-08-31 16:13] LABS: INR 1.08 (0.8-1.2); PARTIAL THROMBOPLASTIN TIME 25.3 secs (22-35.6); PROTHROMBIN TIME 11.3 secs (10.8-13.4)
[2023-08-31 16:17] LABS: ALANINE AMINOTRANSFERASE 18 U/L (12-78); ALBUMIN 2.9 g/dL (3.4-5.0); ALKALINE PHOSPHATASE 118 U/L (50-136); ASPARTATE AMINOTRANSFERASE 20 U/L (15-37); BILIRUBIN,DIRECT 0.2 mg/dL (0.0-0.3); TOTAL BILIRUBIN 0.8 mg/dL (0.0-1.0); TOTAL PROTEIN, SERUM 6.6 g/dL (6.4-8.2)
[2023-08-31 17:21] LABS: FLU A ANTIGEN negative (NEGATIVE); FLU B ANTIGEN NEGATIVE (NEGATIVE)
[2023-08-31] MEDS ORDERED: ATI.5 PO (18:45)
== END 2023-08-31 19:30 | disposition home or self-care (01) ==
LOC: MED 12:37
DX: R55 Syncope and collapse (principal); Z20.822 Contact with and (suspected) exposure to COVID-19; F41.9 Anxiety disorder, unspecified; R22.41 Localized swelling, mass and lump, right lower limb; I11.9 Hypertensive heart disease without heart failure; N28.9 Disorder of kidney and ureter, unspecified; E11.9 Type 2 diabetes mellitus without complications; Z99.2 Dependence on renal dialysis; Z79.4 Long term (current) use of insulin; Z79.899 Other long term (current) drug therapy; Z88.5 Allergy status to narcotic agent; Z91.018 Allergy to other foods
CPT/HCPCS: 36415; 71045; 80048; 80076; 83605; 83880; 84484; 85025; 85610; 85730; 87040; 87426; 87804; 93005; 93971; 99285; Q0092

== ENCOUNTER 2023-09-01 18:27 | Emergency (ER) | payer OTHER ==
[~2023-09-01] VITALS: Ht 149.9 cm; Wt 56.2 kg
[~2023-09-01 18:27] MED LIST changes: +ATI.5 PO
[2023-09-01 18:29] VITALS: BP 117/69; PULSE 87; RESP 18; TEMP 97.8; O2SAT 98
[2023-09-01 20:18] VITALS: BP 114/60; PULSE 88; RESP 16; TEMP 98; O2SAT 98
== END 2023-09-01 20:18 | disposition home or self-care (01) ==
LOC: MED 18:27
DX: Z49.01 Encounter for fitting and adjustment of extracorporeal dialysis catheter (principal); I11.9 Hypertensive heart disease without heart failure; E11.9 Type 2 diabetes mellitus without complications; N28.9 Disorder of kidney and ureter, unspecified; Z88.5 Allergy status to narcotic agent; Z88.8 Allergy status to other drugs, medicaments and biological substances; Z91.018 Allergy to other foods
CPT/HCPCS: 71045; 99283

== ENCOUNTER 2023-10-29 14:34 | Emergency (ER) | payer OTHER ==
[~2023-10-29] VITALS: Ht 129.5 cm; Wt 55.3 kg
[2023-10-29 14:59] VITALS: BP 171/58; PULSE 65; RESP 15; TEMP 98.2; O2SAT 97
[2023-10-29] MEDS ORDERED: HYDROcodone/APAP 5/325 MG 1 TAB TAB ONE (16:14)
[2023-10-29] MEDS: HYDROcodone/APAP 5/325 MG 1 TAB TAB PO ONE (16:19)
[2023-10-29] MEDS ORDERED: ACET-10509 PO (16:22)
[2023-10-29 16:45] VITALS: BP 140/65; PULSE 79; RESP 18; TEMP 98.3; O2SAT 99
== END 2023-10-29 16:45 | disposition home or self-care (01) ==
LOC: MED 14:34
DX: S83.92XA Sprain of unspecified site of left knee, initial encounter (principal); I12.0 Hypertensive chronic kidney disease with stage 5 chronic kidney disease or end stage renal disease; E11.22 Type 2 diabetes mellitus with diabetic chronic kidney disease; N18.6 End stage renal disease; Z99.2 Dependence on renal dialysis; Z95.1 Presence of aortocoronary bypass graft; Z79.82 Long term (current) use of aspirin; Z79.4 Long term (current) use of insulin; Z79.2 Long term (current) use of antibiotics; Z79.1 Long term (current) use of non-steroidal anti-inflammatories (NSAID); Z79.899 Other long term (current) drug therapy; Z88.1 Allergy status to other antibiotic agents; Z88.5 Allergy status to narcotic agent; Z91.018 Allergy to other foods; W01.0XXA Fall on same level from slipping, tripping and stumbling without subsequent striking against object, initial encounter; Y93.89 Activity, other specified; Y92.89 Other specified places as the place of occurrence of the external cause; Y99.8 Other external cause status
CPT/HCPCS: 29505; 73562; 99283

== ENCOUNTER 2023-12-30 15:04 | Inpatient (IN) | payer OTHER ==
[~2023-12-30] VITALS: Ht 149.9 cm; Wt 54.4 kg
[~2023-12-30 15:04] MED LIST changes: +ACET500T99 PO
[2023-12-30 15:36] VITALS: BP 164/96; PULSE 84; RESP 20; TEMP 98.1; O2SAT 95
[2023-12-30 16:16] LABS: BASOPHILS # (AUTO) 0.1 K/uL (0.00-0.22); BASOPHILS % (AUTO) 1.1 % (0.0-2.0); EOSINOPHILS # (AUTO) 0.9 K/uL (0-0.4); EOSINOPHILS % (AUTO) 17.6 % (0.0-4.0); HEMATOCRIT 35.9 % (36-48); HEMOGLOBIN 11.3 g/dL (12.0-16.0); LYMPHOCYTES # (AUTO) 0.8 K/uL (2.5-16.5); LYMPHOCYTES % (AUTO) 16.7 % (20.5-51.1); MEAN CORPUSCULAR HEMOGLOBIN 28 pg (27-31); MEAN CORPUSCULAR HGB CONC 32 g/dL (33-37); MEAN CORPUSCULAR VOLUME 89.3 fL (80-94); MONOCYTES # (AUTO) 0.4 K/uL (0.8-1.0); MONOCYTES % (AUTO) 7.5 % (1.7-9.3); NEUTROPHILS # (AUTO) 2.9 K/uL (1.8-7.7); NEUTROPHILS % (AUTO) 57.1 % (42.2-75.2); PLATELET COUNT (AUTO) 119 K/uL (140-450); RED BLOOD CELL COUNT(AUTO) 4.02 MIL/uL (4.20-5.40); RED CELL DISTRIBUTION WIDTH 15.8 % (11.6-13.7); WHITE BLOOD COUNT (AUTO) 5.1 K/uL (4.8-10.8)
[2023-12-30 16:30] LABS: ANION GAP 12.6 (8-16); CALCIUM 10.2 mg/dL (8.5-10.1); POTASSIUM 4.6 mmol/L (3.5-5.1)
[2023-12-30 16:39] LABS: ALANINE AMINOTRANSFERASE 19 U/L (12-78); ALBUMIN 3.3 g/dL (3.4-5.0); ALKALINE PHOSPHATASE 143 U/L (50-136); ASPARTATE AMINOTRANSFERASE 30 U/L (15-37); BILIRUBIN,DIRECT 0.4 mg/dL (0.0-0.3); LIPASE 15 U/L (16-77); TOTAL BILIRUBIN 1.5 mg/dL (0.0-1.0)
[2023-12-30 16:45] LABS: FLU A ANTIGEN negative (NEGATIVE); FLU B ANTIGEN negative (NEGATIVE)
[2023-12-30] MEDS ORDERED: CLOP-68 PO (17:50)
[2023-12-30] MEDS ORDERED: ATOR10TA PO (17:50)
[2023-12-30 18:25] LABS: LACTIC ACID 1.3 mmol/L (0.4-2.0)
[2023-12-30] MEDS ORDERED: KCL 20 MEQ IN 100 mL PREMIX 200 ML IV PRN (18:30)
[2023-12-30] MEDS ORDERED: POTASSIUM CHLORIDE 10 MEQ TABER PO PRN (18:30)
[2023-12-30] MEDS ORDERED: MAGNESIUM OXIDE 400 MG TAB PO PRN (18:30)
[2023-12-30] MEDS ORDERED: MORPHINE SULFATE 2 MG/ML SYR IVP PRN (18:30)
[2023-12-30] MEDS ORDERED: HYDROcodone/APAP 5/325 MG 1 TAB TAB PO PRN (18:30)
[2023-12-30] MEDS ORDERED: MAG SULF 2000 MG/WATER PREMIX 50 ML IV PRN (18:30)
[2023-12-30] MEDS ORDERED: PIPERACILLIN/TAZOBACTAM 2.25 GM VIAL IV ONE (19:04)
[2023-12-30] MEDS: PIPERACILLIN/TAZOBACTAM 2.25 GM in DEXTROSE 5% 50 ML IV ONE (19:15)
[2023-12-30 20:00] VITALS: BP 177/93; PULSE 80; RESP 17; TEMP 97; O2SAT 99
[2023-12-30 20:01] VITALS: BP 182/93; PULSE 82
[2023-12-30 21:21] VITALS: BP 164/91; PULSE 78
[2023-12-30] MEDS ORDERED: ATI.5 PO (21:21)
[2023-12-30] MEDS ORDERED: HYPR15DR5 OP (21:21)
[2023-12-30] MEDS ORDERED: POLYVINYL ALCOHOL 1.4% OP 15 ML SOL OP PRN (21:35)
[2023-12-30] MEDS ORDERED: hydrALAZINE 20 MG/ML VIAL IVP PRN (21:35)
[2023-12-30] MEDS: hydrALAZINE 20 MG/ML VIAL IVP PRN (21:55)
[2023-12-30 21:57] VITALS: PULSE 78
[2023-12-30] MEDS ORDERED: CLONIDINE HYDROCHLORIDE 0.1 MG TAB PO PRN (23:10)
[2023-12-31] VITALS: BP 155/50; PULSE 75; PULSE 78; RESP 18; TEMP 97.2; O2SAT 100
[2023-12-31 04:00] VITALS: BP 163/86; PULSE 69; PULSE 74; RESP 18; TEMP 97; O2SAT 100
[2023-12-31] MEDS: PIPERACILLIN/TAZOBACTAM 2.25 GM in DEXTROSE 5% 50 ML IV SCH (05:00)
[2023-12-31 07:02] LABS: BASOPHILS # (AUTO) 0.1 K/uL (0.00-0.22); BASOPHILS % (AUTO) 1.6 % (0.0-2.0); EOSINOPHILS # (AUTO) 0.8 K/uL (0-0.4); EOSINOPHILS % (AUTO) 18.5 % (0.0-4.0); HEMATOCRIT 33.8 % (36-48); HEMOGLOBIN 10.7 g/dL (12.0-16.0); LYMPHOCYTES % (AUTO) 23.6 % (20.5-51.1); MEAN CORPUSCULAR HEMOGLOBIN 28 pg (27-31); MEAN CORPUSCULAR HGB CONC 32 g/dL (33-37); MEAN CORPUSCULAR VOLUME 88.9 fL (80-94); MONOCYTES # (AUTO) 0.3 K/uL (0.8-1.0); MONOCYTES % (AUTO) 7.2 % (1.7-9.3); NEUTROPHILS # (AUTO) 2.1 K/uL (1.8-7.7); NEUTROPHILS % (AUTO) 49.1 % (42.2-75.2); PLATELET COUNT (AUTO) 107 K/uL (140-450); RED CELL DISTRIBUTION WIDTH 15.7 % (11.6-13.7); WHITE BLOOD COUNT (AUTO) 4.4 K/uL (4.8-10.8)
[2023-12-31 08:00] VITALS: BP 172/86; PULSE 71; RESP 18; TEMP 97; TEMP 97.4; O2SAT 100
[2023-12-31 08:19] LABS: ANION GAP 13.6 (8-16); CALCIUM 9.8 mg/dL (8.5-10.1); CARBON DIOXIDE 31.9 mmol/L (21-32); POTASSIUM 4.5 mmol/L (3.5-5.1); TOTAL BILIRUBIN 1.4 mg/dL (0.0-1.0); TOTAL PROTEIN, SERUM 7.2 g/dL (6.4-8.2)
[2023-12-31 08:23] LABS: CREATININE 4.9 mg/dL (0.6-1.3)
[2023-12-31] MEDS: NIFEdipine 60 MG TABER PO SCH (09:55)
[2023-12-31 12:00] VITALS: BP 159/73; PULSE 77; PULSE 98; RESP 18; TEMP 98.7; O2SAT 100
[2023-12-31] MEDS: ACETAMINOPHEN 325 MG TAB PO PRN (12:21)
[2023-12-31 16:00] VITALS: BP 131/69; PULSE 74; PULSE 98; RESP 18; TEMP 97.5; O2SAT 100
[2023-12-31 20:00] VITALS: BP 123/71; PULSE 78; RESP 17; RESP 18; TEMP 97; O2SAT 100
[2023-12-31] MEDS: MEDS-TO-BEDS MC SCH (21:00)
[2023-12-31] MEDS: LORazepam 0.5 MG TAB PO ONE (23:00)
[2024-01-01] VITALS (7 sets, daily range): BP systolic 111–131; BP diastolic 53–95; PULSE 72–81; RESP 17–21; TEMP 97–98.2; O2SAT 96–100
[2024-01-01 08:15] LABS: BASOPHILS # (AUTO) 0.1 K/uL (0.00-0.22); BASOPHILS % (AUTO) 1.2 % (0.0-2.0); EOSINOPHILS % (AUTO) 18.4 % (0.0-4.0); HEMATOCRIT 32.8 % (36-48); HEMOGLOBIN 10.5 g/dL (12.0-16.0); LYMPHOCYTES # (AUTO) 0.9 K/uL (2.5-16.5); LYMPHOCYTES % (AUTO) 17.1 % (20.5-51.1); MEAN CORPUSCULAR HEMOGLOBIN 29 pg (27-31); MEAN CORPUSCULAR HGB CONC 32 g/dL (33-37); MEAN CORPUSCULAR VOLUME 88.9 fL (80-94); MONOCYTES # (AUTO) 0.4 K/uL (0.8-1.0); MONOCYTES % (AUTO) 8.1 % (1.7-9.3); NEUTROPHILS % (AUTO) 55.2 % (42.2-75.2); PLATELET COUNT (AUTO) 125 K/uL (140-450); RED BLOOD CELL COUNT(AUTO) 3.69 MIL/uL (4.20-5.40); RED CELL DISTRIBUTION WIDTH 15.6 % (11.6-13.7); WHITE BLOOD COUNT (AUTO) 5.5 K/uL (4.8-10.8)
[2024-01-01] MEDS: CIPROFLOXACIN 250 MG TAB PO SCH (08:32)
[2024-01-01] MEDS: metroNIDAZOLE 500 MG TAB PO SCH (08:33)
[2024-01-01 08:48] LABS: ALBUMIN 2.9 g/dL (3.4-5.0); ANION GAP 15.1 (8-16); CALCIUM 9.5 mg/dL (8.5-10.1); CARBON DIOXIDE 27.4 mmol/L (21-32); MAGNESIUM 2.8 mg/dL (1.8-2.4); POTASSIUM 4.5 mmol/L (3.5-5.1); TOTAL BILIRUBIN 1.1 mg/dL (0.0-1.0)
[2024-01-01 08:50] LABS: CREATININE 6.1 mg/dL (0.6-1.3)
[2024-01-01] MEDS ORDERED: NIFEdipine 60 MG TABER PO SCH (09:00)
[2024-01-01] MEDS ORDERED: NIFE60TA39 PO (16:23)
[2024-01-01] MEDS ORDERED: CIPR250T3 PO (16:23)
[2024-01-01] MEDS ORDERED: METR-435 PO (16:23)
== END 2024-01-01 21:00 | disposition home or self-care (01) | DRG 248 ==
LOC: MED 15:04 → MTU 18:26
PROVIDERS: ADMIT Hospitalist; ATTEND Hospitalist
PROC: 5A1D70Z Performance of Urinary Filtration, Intermittent, Less than 6 Hours Per Day (ICD-10-PCS; principal; 2024-01-01)
DX: A04.9 Bacterial intestinal infection, unspecified (principal); I12.0 Hypertensive chronic kidney disease with stage 5 chronic kidney disease or end stage renal disease; E44.0 Moderate protein-calorie malnutrition; N18.6 End stage renal disease; E11.22 Type 2 diabetes mellitus with diabetic chronic kidney disease; D63.1 Anemia in chronic kidney disease; K74.60 Unspecified cirrhosis of liver; Z20.822 Contact with and (suspected) exposure to COVID-19; E78.5 Hyperlipidemia, unspecified; D86.9 Sarcoidosis, unspecified; Z90.710 Acquired absence of both cervix and uterus; Z99.2 Dependence on renal dialysis; Z88.8 Allergy status to other drugs, medicaments and biological substances; Z79.899 Other long term (current) drug therapy; Z95.1 Presence of aortocoronary bypass graft; Z91.018 Allergy to other foods; Z79.82 Long term (current) use of aspirin; Z68.24 Body mass index [BMI] 24.0-24.9, adult
CPT/HCPCS: 36415; 71045; 80048; 80053; 80076; 83605; 83690; 83735; 84484; 85025; 87040; 87081; 90935; 93005; 96365; 99291; J0360; J1644; J2543; J7060

== ENCOUNTER 2024-02-10 22:57 | Emergency (ER) | payer OTHER ==
[~2024-02-10] VITALS: Ht 149.9 cm; Wt 51.7 kg
[~2024-02-10 22:57] MED LIST changes: -ACET-8905 PO; -ACET500T99 PO; -ASPI-1822 PO; +ATOR10TA PO; -ATOR20TA PO; -CALC667C12 PO; -CEPH-588 PO; +CIPR250T3 PO; +CLOP-68 PO; +HYPR15DR5 OP; -LANTUS INSULIN; -LEVO-481 PO; +METR-435 PO; -NIFE30TE5 PO; +NIFE60TA39 PO
[2024-02-10 23:02] VITALS: BP 160/100; PULSE 60; RESP 20; TEMP 97.4; O2SAT 100
[2024-02-10] MEDS ORDERED: FLUORESCEIN OPTH STRIP 1 MG OP ONE (23:40)
[2024-02-10] MEDS ORDERED: TETRACAINE HCL/PF 0.5% OPTH 4 ML BTL OP ONE (23:40)
[2024-02-10 23:59] LABS: BASOPHILS # (AUTO) 0.1 K/uL (0.00-0.22); BASOPHILS % (AUTO) 2.1 % (0.0-2.0); EOSINOPHILS # (AUTO) 0.8 K/uL (0-0.4); EOSINOPHILS % (AUTO) 17.9 % (0.0-4.0); HEMATOCRIT 30.8 % (36-48); HEMOGLOBIN 9.7 g/dL (12.0-16.0); LYMPHOCYTES # (AUTO) 0.8 K/uL (2.5-16.5); LYMPHOCYTES % (AUTO) 18.9 % (20.5-51.1); MEAN CORPUSCULAR HEMOGLOBIN 27 pg (27-31); MEAN CORPUSCULAR HGB CONC 32 g/dL (33-37); MEAN CORPUSCULAR VOLUME 84.2 fL (80-94); MONOCYTES # (AUTO) 0.4 K/uL (0.8-1.0); MONOCYTES % (AUTO) 9.1 % (1.7-9.3); NEUTROPHILS # (AUTO) 2.2 K/uL (1.8-7.7); PLATELET COUNT (AUTO) 107 K/uL (140-450); RED BLOOD CELL COUNT(AUTO) 3.65 MIL/uL (4.20-5.40); RED CELL DISTRIBUTION WIDTH 15.7 % (11.6-13.7); WHITE BLOOD COUNT (AUTO) 4.3 K/uL (4.8-10.8)
[2024-02-11 00:06] LABS: ANION GAP 9.5 (8-16); CALCIUM 9.7 mg/dL (8.5-10.1); CREATININE 3.8 mg/dL (0.6-1.3); POTASSIUM 3.5 mmol/L (3.5-5.1)
[2024-02-11] MEDS: KETOROLAC 30 MG/ML VIAL IM ONE (00:20)
[2024-02-11] MEDS: HYDROcodone/APAP 5/325 MG 1 TAB TAB PO ONE (00:55)
[2024-02-11] MEDS: ONDANSETRON 4 MG ODT PO ONE (00:56)
[2024-02-11] MEDS: MORPHINE SULFATE 4 MG/ML SYR IM ONE (01:17)
[2024-02-11 01:18] VITALS: BP 155/89; PULSE 79; RESP 20; TEMP 97.6; O2SAT 100
== END 2024-02-11 01:18 | disposition home or self-care (01) ==
LOC: MED 22:57
DX: R51.9 Headache, unspecified (principal); H57.11 Ocular pain, right eye; E11.22 Type 2 diabetes mellitus with diabetic chronic kidney disease; I12.0 Hypertensive chronic kidney disease with stage 5 chronic kidney disease or end stage renal disease; N18.6 End stage renal disease; Z99.2 Dependence on renal dialysis; Z95.1 Presence of aortocoronary bypass graft; Z98.890 Other specified postprocedural states; Z79.899 Other long term (current) drug therapy; Z79.01 Long term (current) use of anticoagulants; Z91.018 Allergy to other foods; Z88.5 Allergy status to narcotic agent; Z88.1 Allergy status to other antibiotic agents
CPT/HCPCS: 36415; 70450; 80048; 85025; 96372; 99285; J2270; Q0162; J1885